=== PATIENT | female | born 2005 | race Caucasian/White ===

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

== ENCOUNTER 2024-01-22 16:13 | Emergency (ER) | payer MEDICAID, SELFPAY ==
[2024-01-22 17:07] VITALS: BP 94/61; PULSE 94; RESP 17; TEMP 36.3; O2SAT 99; BMI 21.3
--- NOTE | 2024-01-22 17:08 | ED.GENADULT ---
HPI - General Adult General Chief complaint: Urogenital-Female Stated complaint: ?UTI/back pain Time Seen by Provider: 01/22/24 21:55 Source: patient and family Mode of arrival: ambulatory Limitations: no limitations History of Present Illness ED Provider: DR. Jackson HPI narrative: 18-year-old female came in for evaluation of upper back pain for months now pain is intermittent worsening with movement or heavy lifting, patient declined any trauma to the upper back, no neck pain. No upper extremity swelling or tenderness. Complaining of dysuria, patient is having her period. Related Data Previous Rx's ?Medication ?Instructions ?Recorded cyclobenzaprine 10 mg tablet 10 mg PO TID PRN muscle spasm #15 09/27/21 tabs ibuprofen 600 mg tablet 600 mg PO Q6H PRN pain #30 tabs 09/27/21 ketorolac 10 mg tablet 10 mg PO TID PRN pain #10 tabs 11/09/21 metoclopramide HCl 5 mg tablet 5 mg PO DAILY #10 tabs 11/09/21 (Reglan) sumatriptan succinate 50 mg tablet 50 mg PO Q2-4H PRN migraine 11/09/21 headache #10 tabs Allergies Allergy/AdvReac Type Severity Reaction Status Date / Time amoxicillin [AMOXICILLIN] Allergy Intermediate UNKNOWN Verified 01/22/24 17:09 animal dander [PET DANDER] Allergy Intermediate HIVES Verified 01/22/24 17:09 Review of Systems Review of Systems: All other systems are reviewed and are negative Constitutional: Reports as per HPI and Reports no additional constitutional complaints Eyes: Reports as per HPI and Reports no additional eye complaints Reports system reviewed and no additional complaints, except as documented Cardiovascular: Reports as per HPI and Reports no additional cardiovascular complaints Respiratory: Reports as per HPI and Reports no additional respiratory complaints Gastrointestinal: Reports as per HPI and Reports no additional gastrointestinal complaints Genitourinary: Reports no additional female genitourinary complaints Musculoskeletal: Reports no additional musculoskeletal complaints Skin/Breast: Reports system reviewed and no additional complaints, except as docu Psychiatric: Reports no additional psychiatric complaints Endocrine: Reports no additional endocrine complaints Hematologic/Lymphatic: Reports no additional hematologic/lymphatic complaints Allergic/Immunologic: Reports no additional allergic/immunologic complaints Reports system reviewed and no additional complaints, except as documented and Reports Abnormal speech present PMFSH Past Medical History Medical History Migraines Social History Social History Advance Directives: No Advance Directives Information Provided: No Do you have a plan to hurt others: No Plan Physical Exam ED Vital Signs: Vital Signs - 24 hr 01/22/24 17:07 01/22/24 20:13 Temperature 97.3 F 98.4 F Pulse Rate 94 80 Respiratory Rate 17 17 Blood Pressure 94/61 115/66 Pulse Oximetry 99 98 Oxygen Delivery Method Room Air Room Air BMI result Body Mass Index 21.3 Vital signs have been reviewed and appear to be correct. Blood pressure elevated. Heart rate normal. Respiratory rate normal. Temperature normal. Oxygen saturation normal. Appearance: Alert. Oriented X3. No acute distress. Head: Normal external exam. Normocephalic. Atraumatic. No Torres signs noted. No raccoon eyes noted Eyes: PERRLA. EOMI. Conjunctiva and sclera normal. Eyelids normal. ENT: TM's Normal. Pharynx normal. Uvula midline. Moist mucous membranes. No trismus noted. No drooling noted. No muffled voice noted. Neck: Normal inspection. Neck supple. FROM. No adenopathy. Thyroid Normal. No meningeal signs. No neck mass noted. CVS: Normal heart rate and rhythm. Heart sound normal. No murmurs noted. Pulses normal throughout. Respiratory: No respiratory distress. Painless inspiration. Breath sounds normal. No wheezes/rales/rhonchi noted. Chest nontender. No accessory muscle usage noted or decreased air movement noted. Abdomen: Soft and nontender. Bowel sounds normal in all 4 quadrants. No distention noted. No organomegaly noted. No visible injury noted. Back: No CVA tenderness. Full range of motion noted. Skin: Skin warm and dry. Normal skin color. Normal skin turgor. No rashes/lesions/lacerations noted. Extremities: No lower extremity edema. Extremities exhibit normal range of motion. Extremities nontender. Neuro: Oriented X 3. Cranial nerve exam: II-XII are grossly intact No motor deficit. No sensory deficit. Reflexes normal. Course Course Course Narrative: This is an RME done by ANDREINA Marcos: Additional HPI, ROS, PE not included below will be deferred to primary provider. 18 yo female presenting with back pain, dysuria, and vaginal discharge. She reports she has had similar symptoms in the past when she had a UTI. She does not report any concerns for STIs. Appearance: Alert.? Oriented X3.? No acute cardiopulmonary distress distress.? Head: Normocephalic, atraumatic, no step-offs or deformities Neck: Normal inspection.? Neck supple.? CVS: Pulses normal.? Respiratory: No respiratory distress.? Skin: ? Normal skin color. Extremities: 5/5 strength to bilateral upper and lower extremities Back: No midline tenderness, no C-spine tenderness, full range of motion, No CVA tenderness bilaterally Neuro: Oriented X 3.? No motor deficit.? No sensory deficit. Reevaluation(s) Reevaluation #1: Upper back pain on and off, no trauma, no injury, patient is requesting x-ray, normal neuro exam. Left before x-ray and full evaluation. Time: 22:30 Medical Decision Making Differential Diagnosis Differential Diagnoses: The differential diagnosis associated with the presentation includes (Muscular pain, osteoarthritis, UTI, .) Admission/Observation Consideration of admission/observation: Escalation of care including admission/observation considered Lab Data MDM Lab Attestation statement: I reviewed the patient's lab results. 01/22/24 17:20 01/22/24 17:20 Labs: Lab Results 01/22/24 Range/Units 17:20 WBC 6.1 (4.8-10.8) X10*3/uL RBC 4.25 (4.20-5.50) X10*6/uL Hgb 13.0 (12.0-16.0) g/dl Hct 38.3 (37.0-47.0) % MCV 90.1 (80.0-98.0) fL MCH 30.6 (27.0-33.0) pg MCHC 33.9 (31.0-35.0) g/dl RDW 12.7 (11.0-16.0) % Plt Count 258 (160-400) X10*3/uL MPV 11.2 (9.4-12.3) fL Immature Gran % (Auto) 0.3 (0.0-0.4) % Neut % (Auto) 66.7 (45-73) % Lymph % (Auto) 22.8 (20-40) % [place] % (Auto) 7.4 (2-11) % Eos % (Auto) 2.1 (0-4) % Baso % (Auto) 0.7 (0-2) % Lymph # (Auto) 1.4 (1.2-4.9) X10*3/uL [place] # (Auto) 0.5 (0.1-1.2) X10*3/uL Eos # (Auto) 0.1 (0.0-0.4) X10*3/uL Baso # (Auto) 0.0 (0.0-0.2) X10*3/uL Abs Immat Gran (auto) 0.02 (0.00-0.03) X10*3/uL Absolute Neuts (auto) 4.1 (2.0-8.3) x10*3/uL Absolute Nucleated RBC 0.000 (0.0-0.012) X10*3/uL Nucleated RBC % (auto) 0.0 (0.0-0.2) /100WBC Sodium 142 (135-145) mmol/L Potassium 4.1 (3.3-5.1) mmol/L Chloride 111 H (96-108) mmol/L Carbon Dioxide 24 (22-29) mmol/L Anion Gap 11 L (12-20) BUN 13 (9-16) mg/dL Creatinine 0.76 (0.5-1.4) mg/dL Estim Creat Clear Calc 89.8 Estimated GFR > 60 Random Glucose 86 (60-115) mg/dL Calcium 9.2 (8.4-10.2) mg/dL Magnesium 2.1 (1.6-2.6) mg/dL Total Bilirubin 0.6 (0.0-1.0) mg/dL AST 22 (5-31) U/L ALT 15 (0-31) U/L Alkaline Phosphatase 94 (39-117) U/L Total Protein 7.1 (6.5-8.0) g/dL Albumin 4.1 (3.5-5.0) g/dL Beta HCG, Quant < 2 mIU/mL Urine Color Dark Yellow Urine Appearance Cloudy Urine pH 5.5 (5.0-9.0) Ur Specific [place] >= 1.030 H (1.005-1.025) Urine Protein Trace (Neg-Trace) mg/dL Urine Glucose (UA) Negative (Negative) mg/dL Urine Ketones Trace (Negative) mg/dL Urine Blood Small (1+) H (Negative) Urine Nitrite Negative (Negative) Ur Leukocyte Esterase Negative (Negative) Urine RBC 6-10 H (0-2) /HPF Urine WBC 0-5 (0-5) /HPF Ur Squamous Epith Cells 11-20 (0-2) /HPF Urine Bacteria Trace (None Seen) Hyaline Casts 3-5 (0-2) /LPF Urine Test NEGATIVE (NEGATIVE) Discharge Plan Discharge Clinical Impression: Pain in thoracic spine Patient Disposition: Home, Self-Care Instructions: Thoracic Pain (ED) Additional Instructions: Take [id number] ibuprofen 200 mg tablet or Tylenol 500 mg tablet every 6 hours if needed for pain. Prescriptions: No Action ibuprofen 600 mg tablet 600 mg PO Q6H PRN (Reason: pain) Qty: 30 0RF cyclobenzaprine 10 mg tablet 10 mg PO TID PRN (Reason: muscle spasm) Qty: 15 0RF ketorolac 10 mg tablet 10 mg PO TID PRN (Reason: pain) Qty: 10 0RF Rx Instructions: Do not take ibuprofen with this medication, only Tylenol if needed. metoclopramide HCl [Reglan] 5 mg tablet 5 mg PO DAILY Qty: 10 0RF Rx Instructions: Take together with Toradol p.r.n. migraines sumatriptan succinate 50 mg tablet 50 mg PO Q2-4H PRN (Reason: migraine headache) Qty: 10 0RF Rx Instructions: Use only if Toradol does not work Print Language: Welsh
[2024-01-22 17:29] LABS: MANUAL DIFF FLAG NO
[2024-01-22 17:33] LABS: Appearance Urine Cloudy; Color Urine Dark Yellow; Glucose Urine UA Negative (Negative); Leukocyte Esterase Urine Negative (Negative); Nitrite Urine Negative (Negative); PH 5.5 (5.0-9.0); Specific Gravity - Urine >= 1.030 (1.005-1.025); UMIC TRIGGER UACC YES; UPreg QC Valid YES; Urine Blood Small (1+) (Negative); Urine Ketones Trace mg/dL (Negative); Urine Pregnancy NEGATIVE (NEGATIVE); Urine Protein Trace mg/dL (Neg-Trace)
[2024-01-22 17:35] LABS: Basophils Percent Auto 0.7 % (0-2); Eosinophils Absolute Auto 0.1 X10*3/uL (0.0-0.4); Eosinophils Percent Auto 2.1 % (0-4); Hematocrit 38.3 % (37.0-47.0); Imm Gran Abs Auto 0.02 X10*3/uL (0.00-0.03); Imm Gran Pct Auto 0.3 % (0.0-0.4); Lymphocytes Absolute Auto 1.4 X10*3/uL (1.2-4.9); Lymphocytes Percent Auto 22.8 % (20-40); Mean Corpuscular HGB Conc 33.9 g/dl (31.0-35.0); Mean Corpuscular Hemoglobin 30.6 pg (27.0-33.0); Mean Corpuscular Volume 90.1 fL (80.0-98.0); Mean Platelet Volume 11.2 fL (9.4-12.3); Monocytes Absolute Auto 0.5 X10*3/uL (0.1-1.2); Monocytes Percent Auto 7.4 % (2-11); Neutrophils Absolute Auto 4.1 x10*3/uL (2.0-8.3); Neutrophils Percent Auto 66.7 % (45-73); Platelet Count 258 X10*3/uL (160-400); Red Blood Count 4.25 X10*6/uL (4.20-5.50); Red Cell Distribution Width 12.7 % (11.0-16.0); White Blood Count 6.1 X10*3/uL (4.8-10.8)
[2024-01-22 17:47] LABS: Bacteria Urine Trace (None Seen); WBC Urine 0-5 /HPF (0-5)
[2024-01-22 18:04] LABS: Alanine Aminotransferase 15 U/L (0-31); Albumin Level 4.1 g/dL (3.5-5.0); Alkaline Phosphatase 94 U/L (39-117); Anion Gap 11 (12-20); Aspartate Amino Transferase 22 U/L (5-31); Bilirubin Total 0.6 mg/dL (0.0-1.0); Blood Urea Nitrogen 13 mg/dL (9-16); Calcium 9.2 mg/dL (8.4-10.2); Carbon Dioxide 24 mmol/L (22-29); Chloride 111 mmol/L (96-108); Creatinine Clr Calc Pharmacy 89.8; Estimated Glomerular Filt Rate > 60; Glucose Random 86 mg/dL (60-115); HCG Quantitative < 2 mIU/mL; Magnesium 2.1 mg/dL (1.6-2.6); Potassium 4.1 mmol/L (3.3-5.1); Sodium 142 mmol/L (135-145); Total Protein 7.1 g/dL (6.5-8.0)
[2024-01-22 20:13] VITALS: BP 115/66; PULSE 80; RESP 17; TEMP 36.9; O2SAT 98
--- NOTE | 2024-01-22 22:37 | MHC.EDTECH ---
Pt and pt mother approached this tech and stated we want to leave. This tech attempted to explain it is best to wait until they are formally discharged as there was still exams that needed to be done as well as results that were not yet back. Pt mother stated we have been here for five hours and no one has seen my daughter we want to leave or go get the doctor. Tech apologized and stated that the doctor would be over as soon as they could be. Pt mother continued to grow more agitated and tech stated she would get the nurse for her. Tech told the RN and RN attempted to talk to the pt and pt mother.
--- NOTE | 2024-01-22 23:37 | PC.NURSE ---
pt requested to leave prior to xray imaging, stated that she met with the doctor but did not want to stay any longer. she was awake, alert, without distress and ambulated out of the ed with even and steady gait
== END 2024-01-22 22:15 | disposition left against medical advice (07) ==
PROVIDERS: Physician Assistant; Emergency Provider Emergency Medicine
DX: M54.6 Pain in thoracic spine (principal)
CPT/HCPCS: 36415; 80053; 81001; 81025; 83735; 84702; 85025; 99283

== ENCOUNTER 2024-02-08 18:07 | Outpatient (REF) | payer MEDICAID, SELFPAY ==
[2024-02-09 02:09] LABS: CT PCR DETECTED (Not Detect.); NG PCR NOT DETECTED (Not Detect.)
== END 2024-02-08 18:08 | disposition home or self-care (01) ==
LOC: HO.HHCLNP 18:07
PROVIDERS: Visit Provider Advanced Practice Midwife
DX: Z20.2 Contact with and (suspected) exposure to infections with a predominantly sexual mode of transmission (principal); N76.0 Acute vaginitis
CPT/HCPCS: 87491; 87591

== ENCOUNTER 2024-03-17 19:05 | Outpatient (REF) | payer MEDICAID, SELFPAY ==
[2024-03-18 12:30] LABS: CT PCR NOT DETECTED (Not Detect.); NG PCR NOT DETECTED (Not Detect.)
[2024-03-18 13:42] LABS: Bacterial Vaginosis PCR POSITIVE (Negative); Candida Group PCR NOT DETECTED (Not Detect); Candida glab krusei PCR NOT DETECTED (Not Detect); Trichomonas vaginalis PCR NOT DETECTED (Not Detect)
== END 2024-03-17 19:06 | disposition home or self-care (01) ==
LOC: HO.HHCLNP 19:05
PROVIDERS: Visit Provider Internal Medicine
DX: R39.9 Unspecified symptoms and signs involving the genitourinary system (principal)
CPT/HCPCS: 0352U; 87491; 87591

== ENCOUNTER 2024-04-04 17:50 | Outpatient (REF) | payer MEDICAID, SELFPAY ==
[2024-04-05 04:48] LABS: CT PCR NOT DETECTED (Not Detect.); NG PCR NOT DETECTED (Not Detect.)
[2024-04-05 10:58] LABS: Bacterial Vaginosis PCR NEGATIVE (Negative); Candida Group PCR NOT DETECTED (Not Detect); Candida glab krusei PCR NOT DETECTED (Not Detect); Trichomonas vaginalis PCR NOT DETECTED (Not Detect)
== END 2024-04-04 17:51 | disposition home or self-care (01) ==
LOC: HO.HHCLNP 17:50
PROVIDERS: Visit Provider Internal Medicine
DX: N89.8 Other specified noninflammatory disorders of vagina (principal)
CPT/HCPCS: 0352U; 87491; 87591

== ENCOUNTER 2024-06-14 14:26 | Outpatient (REF) | payer MEDICAID, SELFPAY ==
[2024-06-15 05:37] LABS: CT PCR NOT DETECTED (Not Detect.); NG PCR NOT DETECTED (Not Detect.)
[2024-06-15 08:08] LABS: Bacterial Vaginosis PCR NEGATIVE (Negative); Candida Group PCR NOT DETECTED (Not Detect); Candida glab krusei PCR NOT DETECTED (Not Detect); Trichomonas vaginalis PCR NOT DETECTED (Not Detect)
== END 2024-06-14 14:27 | disposition home or self-care (01) ==
LOC: HO.LNP 14:26
PROVIDERS: Visit Provider Pediatrics
DX: R30.0 Dysuria (principal)
CPT/HCPCS: 0352U; 87491; 87591

== ENCOUNTER 2024-07-22 09:45 | Outpatient (REF) | payer MEDICAID, SELFPAY ==
[2024-07-22 11:07] LABS: MANUAL DIFF FLAG NO
[2024-07-22 11:15] LABS: Basophils Absolute Auto 0.1 X10*3/uL (0.0-0.2); Basophils Percent Auto 1.4 % (0-2); Eosinophils Absolute Auto 0.2 X10*3/uL (0.0-0.4); Eosinophils Percent Auto 3.4 % (0-4); Hematocrit 44.5 % (37.0-47.0); Hemoglobin 14.7 g/dl (12.0-16.0); Imm Gran Abs Auto 0.02 X10*3/uL (0.00-0.03); Imm Gran Pct Auto 0.5 % (0.0-0.4); Lymphocytes Absolute Auto 1.7 X10*3/uL (1.2-4.9); Lymphocytes Percent Auto 37.8 % (20-40); Mean Corpuscular Hemoglobin 29.8 pg (27.0-33.0); Mean Corpuscular Volume 90.1 fL (80.0-98.0); Mean Platelet Volume 11.8 fL (9.4-12.3); Monocytes Absolute Auto 0.3 X10*3/uL (0.1-1.2); Monocytes Percent Auto 6.6 % (2-11); Neutrophils Absolute Auto 2.2 x10*3/uL (2.0-8.3); Neutrophils Percent Auto 50.3 % (45-73); Platelet Count 238 X10*3/uL (160-400); Red Blood Count 4.94 X10*6/uL (4.20-5.50); Red Cell Distribution Width 12.1 % (11.0-16.0); White Blood Count 4.4 X10*3/uL (4.8-10.8)
[2024-07-22 12:11] LABS: Alanine Aminotransferase 16 U/L (0-31); Albumin Level 4.9 g/dL (3.5-5.0); Alkaline Phosphatase 100 U/L (39-117); Anion Gap 9 (12-20); Aspartate Amino Transferase 22 U/L (5-31); Bilirubin Direct 0.4 mg/dL (0.0-0.5); Bilirubin Total 1.3 mg/dL (0.0-1.0); Blood Urea Nitrogen 10 mg/dL (9-16); Calcium 9.8 mg/dL (8.4-10.2); Carbon Dioxide 27 mmol/L (22-29); Chloride 109 mmol/L (96-108); Cholesterol 124 mg/dL (<200); Estimated Glomerular Filt Rate > 60; Glucose Random 91 mg/dL (60-115); HDL Cholesterol 61 mg/dL (>40); LDL Cholesterol Calculated 53 mg/dL (<100); Sodium 141 mmol/L (135-145); Total Protein 8.1 g/dL (6.5-8.0); Triglycerides 51 mg/dL (<150)
[2024-07-22 13:38] LABS: CT PCR NOT DETECTED (Not Detect.); NG PCR NOT DETECTED (Not Detect.)
[2024-07-23 04:32] LABS: HIV AB/AG Nonreactive (Nonreactive); HIV Num 1 0.05 S/CO (0.00-0.99); ~HepC Num1 0.14 S/CO (0.00-0.79); ~Hepatitis C Antibody Nonreactive (Nonreactive)
== END 2024-07-22 09:46 | disposition home or self-care (01) ==
LOC: HO.HHCL 09:45
PROVIDERS: Visit Provider Family Medicine
DX: N91.2 Amenorrhea, unspecified (principal); Z11.3 Encounter for screening for infections with a predominantly sexual mode of transmission
CPT/HCPCS: 80048; 80061; 80076; 85025; 86803; 87389; 87491; 87591

== ENCOUNTER 2025-04-18 10:24 | Outpatient (REF) | payer MEDICAID, SELFPAY ==
--- OUTSIDE RECORDS SUMMARY | 2025-04-18 11:34 | XMS_ITS | Clinical Summary ---
Author Organization [employer] Address [address] [facility] 7[address] [place] [address] Care Team Providers Care Alodize Machine Helper Name Role Phone Yanely Mcdonald MD Primary Care Provider [phone] Charlene Curiel MD Unavailable + [phone] Allergies Active Allergy Reactions Criticality Noted Date Comments Amoxicillin Hives 03/10/2014 Medications etonogestrel-eluti ng 68 mg contraceptive implantIndications :Family planning 1 each by Implant route 1 (one) time. 1 Active cetirizine (ZyrTEC) 10 MG tabletIndications: Acute seasonal allergic rhinitis due to pollen Take 1 tablet (10 mg) by mouth Once per day. 30 tablet 11 5 07/22/19 26 Active Active Problems Problem Noted Date Diagnosed Date Chronic midline thoracic back pain 07/22/2024 Overview (07/22/2024): Other specified health status 07/09/2024 Overview (07/22/2024): -next comprehensive annual evaluation due after 07/22/25 -eye care facilitated by -dental home is [facility] care proxy filed 07/22/24 Assessment & Plan (07/22/2024 9:43 AM EST): -next comprehensive annual evaluation due after 07/22/25 -[facility] proxy filed 07/22/24 Migraine without aura and wi thout status migrainosus, not intractable 05/14/2022 Overview (07/22/2024): -Followed by Neurology, Dr. Cruiel in past. Dxs: Migraines. Has been tried on Propranolol, Topiramate, Amitriptyline without success. Had Sumatriptan as an abortive but now just deals with it. Does not want to take medications for them. Occ Tylenol or Ibuprofen. Assessment & Plan (07/22/2024 9:45 AM EST): -Followed by Neurology, Dr. Curiel in past. Dxs: Migraines. Has been tried on Propranolol, Topiramate, Amitriptyline without success. Had Sumatriptan as an abortive but now just deals with it. Does not want to take medications for them. Occ Tylenol or Ibuprofen. Nexplanon in place 12/21/2020 Overview (07/22/2024): - Placed 12/21/20 at [facility], she would like it removed. -has apt at [facility] for removal 07/27/24 -declines new family planning method. Declines Plan B. Does not desire at this time. Denies sexual activity. Assessment & Plan (07/22/2024 9:45 AM EST): - Placed 12/21/20 at [facility], she would like it removed. -has apt at [facility] for removal 07/27/24 -declines new family planning method. Declines Plan B. Does not desire at this time. Denies sexual activity. Acute seasonal allergic rhinitis due to pollen 0 01/03/2019 Overview (07/22/2024): -Seen by Dr. Davis. Started immunotherapy but stopped after 6 months. Takes Zyrtec prn. Assessment & Plan (07/22/2024 9:45 AM EST): -Seen by Dr. Davis. Started immunotherapy but stopped after 6 months. Takes Zyrtec prn. Resolved Problems Problem Noted Date Diagnosed Date Resolved Date Normal oral exam 06/20/2024 07/09/2024 Bacterial vaginosis 04/04/2024 07/09/20 24 Assessment & Plan (04/04/2024 1:36 PM EDT): Last vaginal swab was POS for BV, I will rx with Flagyl and fu today's swab results. Advised against vag douches, avoid intercourse while on medication. Re consult prn sxs FU with PCP re vag spotting if peristent 2w after rx. Dental plaque 03/16/2023 07/09/2024 Lab test positive for detect ion of COVID-19 virus 07/09/2020 07/09/2024 Overview (02/08/2024): June 2020 Allergic conjunctivitis of both eyes 01/03/2019 07/09/2024 Overview (02/08/2024): Zaditor as needed Encounters Date Type Department Care Team Description 04/17/[address] [address] Yanely Mcdonald MD Pt resquting physical and tspot 04/17/2025 Orders Only [address] [phone] Yanely Mcdonald MD Screening-pulmonary TB (Primary Dx) 04/17/[address] [address] Yanely Mcdonald MD Paperwork/Forms; Lab Orders from Last 3 Months Immunizations Immunization Administration Dates Next Due DTaP / Hep B / IPV 01/01/2005,2004, 005 DTaP, 5 pertussis antigens 08/21/2008,12/30/2005 HPV 9-Valent 12/23/2017,07/18/2016 Hep A, ped/adol, 2 dose 04/19/2014,10/17/2013 Hib (HbOC) 01/01/2005,2004,2004 Hib (PRP-T) 09/26/2005 IPV 08/21/2008 Influenza Injectable Quadriv alant Preservative Free IIV4 MDCK 06/24/2016 Influenza injectable quadriv alent preservative free 09/22/2022,05/07/2021,06/20/2020,05/25,07/06/2017,04/15/2014,10/17/2013 Influenza, IIV3, injectable 07/18/2009,1 08/22/2007,07/27/2007,05/29,07/04/2005,05/30/2005 Influenza, Split (incl. cari fied surface antigen) 10/03/2011,06/19/2010 MMR 08/21/2008,07/04/2005 Meningococcal B, Recombinant 09/28/2023,09/23/19 23 Meningococcal MCV4P ACYW-135 08/22/2020,12/07/19 16 Novel Toirsypef-U8H2-20, all formulations 07/18/2009,05/29/2009 Pneumococcal Conjugate PCV 7 09/26/2005, 01/01/2005,2004,09/03 Tdap 12/07/2015 Varicella 08/21/2008,07/04/2005 Family History Medical History Relation Name Comments Diabetes Neg Hx Social History Tobacco Use Types Packs/Day Years Used Date Smoking Tobacco: Never Passive Smoke Exposure: Past Smokeless Tobacco: Former Tobacco Cessation:Counseling Given: Not Answered Alcohol Use Standard Drinks/Week Comments Never 0 (1 standard drink = 0.6 oz pur e alcohol) Depression Answer Date Recorded Patient Health Questionnaire-9 Score 0 07/22/2024 Patient Health Questionnaire-9 Score 0 07/22/2024 Last PHQ-9: Questionnaire Data Not on file 0 07/22/2024 Housing Stability Answer Date Recorded What is your housing situation today? I have jason barrett 07/12/[address] you li ve. Do you have problems with any of the following? None of the above 07/12/2024 Food Insecurity Answer Date Recorded Within the past 12 months, y ou worried that your food would run out before you got money to buy more: Never True 07/12/2024 Within the past 12 months,th e food you bought just didn't last and you didn't have enough money to get more: Never True Transportation Answer Date Recorded In the past 12 months, has l ack of transportation kept you from medical appts, meetings, work or from getting things needed for daily living? No 07/12/2024 Utilities Answer Date Recorded In the past 12 months, has t he electric, gas, oil or water company threatened to shut off services in your home? No 07/12/2024 Depression Answer Date Recorded Patient Health Questionnaire-2 Score 0 07/22/2024 Internet Access Answer Date Recorded Internet Access Q1 Yes 07/12/2024 Internet Access Q2 Not on file 07/12/2024 Comments No Sex and Gender Information Value Date Recorded Sex Assigned at Female 05/19/2022 10:24 AM EDT Legal Sex Female 10:24 AM EDT Gender Identity Female 05/19/2022 10:24 AM EDT Sexual Orientation Straight 05/19/2022 10 :24 AM EDT Occupation Industry Job Start Date Job End Date [employer] Not on file Not on file Not on file Last Filed Vital Signs Vital Sign Reading Time Taken Comments Blood Pressure 94/68 12/20/2024 7:59 AM EDT Pulse 74 07/22/2024 9:14 AM EST Temperature 36.1 C (96.9 F) 07/22/2024 9:14 AM EST Respiratory Rate 19 07/22/2024 9:14 AM EST Oxygen Saturation 98% 07/22/2024 9:14 AM EST Inhaled Oxygen Concentration - - Weight 49.9 kg (110 lb) 07/22/2024 9:14 AM EST Height 157.5 cm (5' 2 ) 07/22/2024 9:14 AM EST Body Mass Index 20.12 07/22/2024 9:14 AM EST Plan of Treatment Upcoming Encounters Date Type Department Care Team (Late st Contact Info) Description 07/04/2025 8:00 AM EST Office Visit [facility] [address] [place] [address] Vincent, Grecia [address] [place] [address] Health Maintenance Due Date Last Done Comments Disability Screening 2004 Dental Oral Exam 12/20/2024 06/20/2024, , 01/16/2022, Additional history exists COVID-19 Vaccine ( season) 2025 12/06/2020, 11/15/2020 Influenza Vaccine (#1) 2025 , 05/07/2021, 06/20/2020, Additional history exists Dental X-Ray: Bitewings 06/21/2025 06/20/20 24, 03/16/2023, 01/16/2022, Additional history exists Dental Prophylaxis 06/22/2025 12/20/2024, 1 08/21/2023, 03/16/2023, Additional history exists SDOH Screening 07/12/2025 07/12/2024 Alcohol/Substance Use Screening 07/22/2025 07/22/2024 Chlamydia and Gonorrhea Screening 07/22/2025 07/22/2024, 06/14/2024, 04/04/2024, Additional history exists Depression Screening 07/22/2025 07/22/2024, 07/22/19 25 Family Planning (PISQ) 07/22/2025 07/22/2024 DTaP/Tdap/Td Vaccines (7 - Td or Tdap) 12/06/2025 12/07/2015, 08/21/2008, 12/30/2005, Additional history exists Tobacco Screening 12/20/2025 12/20/2024 Dental X-Ray: Full Mouth 03/17/2026 023, 08/18/2017, 10/22/2015 Zoster Vaccines (1 of 2) 2054 RSV Patients and Patients Aged 60 years or older (1 - 1-dose 75+ series) 2079 Hepatitis B Vaccines Completed 01/01/2005, 2004, 2004 HIB Vaccines Completed 09/26/2005, 12/18, 2004, Additional history exists Pneumococcal Vaccine: Pediatrics (0 to 5 Years) and At-Risk Patients (6 to 49) Years Aged Out 09/26/2005, 01/01/2005, 2004, Additional history exists No longer eligible based on patient's age to complete this topic IPV Vaccines Completed 08/21/2008, 12/18, 2004, Additional history exists Hepatitis A Vaccines Completed 04/19/2014, 10/18/19 14 HPV Vaccines Completed 12/23/2017, 07/18/2016 Meningococcal Vaccine Completed 08/22/2020, 016 Meningococcal B Vaccine Completed 09/28/2023, 09/22 HIV Screening Completed 07/22/2024 Hepatitis C Screening Completed 07/22/2024 RSV under 20 months Aged Out No longe r eligible based on patient's age to complete this topic Rotavirus Vaccines Aged Out No longer eligible based on patient's age to complete this topic Procedures Procedure Name Priority Date/Time Associated Diagnosis Comments PROPHYLAXIS - ADULT Routine 12/20/2024 8 :00 AM EDT Dental plaque HEPATITIS C AB W/REFL TO HCV RNA, QN, PCR Routine 07/22/2024 9:49 AM EST Routine screening for STI (sexually transmitted infection) HIV 1/2 ANTIGEN/ANTIBODY, FOURTH GENERATION W/RFL Routine 07/22/2024 9:49 AM EST Routine screening for STI (sexually transmitted infection) CHLAMYDIA/N. GONORRHOEAE RNA, TMA, UROGENITAL Routine 07/22/2024 9:49 AM EST Routine screening for STI (sexually transmitted infection) BITEWINGS - 4 RADIOGRAPHIC IMAGES Routine 06/20/2024 9:00 AM EST Dental plaque PERIODIC ORAL EVALUATION - ESTABLISHED PATIENT Routine 06/20/2024 9:00 AM EST INTRAORAL - COMPLETE SERIES OF RADIOGRAPHIC IMAGES Routine 03/16/2023 11:00 AM EDT Dental plaque from Last 3 Months or Most Recently Relevant to Health Maintenance Results * Hepatitis C Antibody with Reflex to HCV, RNA, Quantitative, Real-Time PCR (07/22/2024 9:49 AM EST) Hepatitis C Antibody Nonreactive Nonreactive [facility] Comment:Antibodies to HCV no t detected; does not exclude early acuteHCV infection. Blood Venous blood specimen / Unknown 07/22/2024 9:49 AM EST 07/22/2024 11:03 AM EST Yanely Mcdonald MD LAB BLOOD ORDERABLES Final Result [facility] [address] [place] [address] [phone] * Chlamydia/N. Gonorrhoeae RNA, TMA, Urine (07/22/2024 9:49 AM EST) CT PCR NOT DETECTED Not Detect. [facility] Comment:A not detected test result does not exclude the possibilityof infection because test results can be affected byimproper specimen collection, concurrent antibiotic therapy,or the number of organisms in the specimen which may bebelow the sensitivity of the test. As with many diagnostictests, results from the Xpert CT/NG assay should beinterpreted in conjunction with other laboratory andclinical data available to the clinician.Xpert CT/NG performance has not been evaluated in patientsless than 14 years of age. The assay should not be used forthe evaluationof suspected sexual abuse or for other medico-legalindications. Additional testing is recommended in anycircumstance when false positive or false negative resultscould lead to adverse medical, social or psychologicalconsequences. NG PCR NOT DETECTED Not Detect. [facility] Comment:A not detected test result does not exclude the possibilityof infection because test results can be affected byimproper specimen collection, concurrent antibiotic therapy,or the number of organisms in the specimen which may bebelow the sensitivity of the test. As with many diagnostictests, results from the Xpert CT/NG assay should beinterpreted in conjunction with other laboratory andclinical data available to the clinician.Xpert CT/NG performance has not been evaluated in patientsless than 14 years of age. The assay should not be used forthe evaluationof suspected sexual abuse or for other medico-legalindications. Additional testing is recommended in anycircumstance when false positive or false negative resultscould lead to adverse medical, social or psychologicalconsequences. Urine, Random 07/22/2024 9:4 9 AM EST 07/22/2024 11:03 AM EST Narrative [facility] - 07/22/2024 1:38 PM EST Urine Yanely Mcdonald MD LAB MICROBIOLOGY - GENERAL ORDERABLES Final Result Performing Organization Address [facility] Co de Phone Number [facility] [address] [place] [phone] * HIV-1/2 Antigen and Antibodies, Fourth Generation, with Reflexes (07/22/2024 9:49 AM EST) HIV AB/AG Nonreactive Nonreactive [facility] Comment:HIV-1 p24 Ag and/or HIV-1/HIV-2 Ab not detected.A test result that is nonreactive does not exclude thepossibility of exposure to or infection with HIV-1 and/orHIV-2. Nonreactive results in this assay for individualswith prior exposure to HIV-1 and/or HIV-2 may be due toantigen and antibody levels that are below the limit ofdetection of this assay.The [employer] HIV Ag/Ab Combo assay result andsupplemental assay results should be interpreted inconjunction with the patient's clinical presentation,history and other laboratory results. If the results areinconsistent with clinical evidence, additional testing issuggested to confirm the result. Blood Venous blood specimen / Unknown 07/22/2024 9:49 AM EST 07/22/2024 11:03 AM EST Yanely Mcdonald MD LAB BLOOD ORDERABLES Final Result Performing Organization Address [facility] Co de Phone Number [facility] [address] [place] [phone] from Last 3 Months or Most Recently Relevant to Health Maintenance [facility] C[facility] - HSN PARTIAL (MEDICAID) Advance Directives Documents on File Type Date Recorded Patient Log Cutter Expl anation Advance Directives and Living Will 07/22/2024 Health Care Proxy 07/22/24 Care Teams Alodize Machine Helper Relationship Specialty Start Date End Date Galloway, MD Yanely [address] [place] [phone] PCP - General Family Medicine 06/09/24 Charlene Curiel MD [address] [place] [address] [place] [address] Neurology 07/09/24
--- OUTSIDE RECORDS SUMMARY | 2025-04-18 11:34 | XMS_ITS | Encounter Summary ---
Author Organization [employer] Address [address] [facility] [address] [place] [address] Care Team Providers Care Advanced Practice Professional Name Role Phone Yanely Mcdonald MD Primary Care Provider [phone]- [phone] Charlene Curiel MD Unavailable + [phone] Reason for Visit * Reason Onset Date Comments Paperwork/Forms 04/17/2025 Lab Orders 04/17/2025 Encounter Details Date Type Department Care Team (Late st Contact Info) Description 04/17/2025 Telephone [facility] MEDICINE [address] [place], [place] [phone] Yanely Mcdonald MD [address] [place], [place] [phone] Paperwork/Forms; Lab Orders Social History Tobacco Use Types Packs/Day Years Used Date Smoking Tobacco: Never Passive Smoke Exposure: Past Smokeless Tobacco: Former Alcohol Use Standard Drinks/Week Comments Never 0 [...] file Not on file Not on file documented as of this encounter Miscellaneous Notes * Telephone Encounter - Edie Ramos RN - 04/17/2025 11:51 AM EDT Returned call to pt, no answer, left voicemail to call back [facility]. Refresh Body message sent. * Telephone Encounter - Carmen Porras RN - 04/17/2025 10:26 AM EDT Pt. Got new job and is requesting copy of PE and a current TB test. This was my reply in pt. [place] pt: Good Morning Jennifer, You can go directly to Medical records and sign a paper requesting your last PE. Usually when a jnob requires a TB test it has to be done in the present on a Thursday, Thursday, or Thursday because youwould have to come back 2 days later to have your arm read where the Tuberculin test was planted oryou could ask PCP to order blood work to show that you are Negative for TB. You did have a New pt. A ppointment. Done 07/22/2024 which may be considered a PE. I will send this note to your PCP to see ifthat appointment. Qualifies as a PE but you will need to either have a PPD appointment with team nurse for TB or I can see if your PCP would be willing to order you the TB blood work. I will ask Dr. Mcdonald nurses to get back to you today on this. Sincerely, Carmen ROUSSEAU Please advise and call pt. With best plan of care documented in this encounter Plan of Treatment Upcoming Encounters Date Type Department Care Team (Late st Contact Info) Description 07/04/2025 8:00 AM EST Office Visit [facility] ADULT DENTAL [address] [place] [address] Grecia Kaur [address] [place] [address] documented as of this encounter Visit Diagnoses Not on filedocumented in this encounter Additional Health Concerns Assessment Noted Time PHQ-9 Depression Total Score: 0 07/22/19 25 11:48 AM EST documented as of this encounter Care Teams Advanced Practice Professional Relationship Specialty Start Date End Date Yanely Mcdonald MD [address] [place] [address] PCP - General Family Medicine 06/09/24 Charlene Curiel MD [address] [place] [address] [place] [address] Neurology 07/09/24 documented as of this encounter
--- OUTSIDE RECORDS SUMMARY | 2025-04-18 11:34 | XMS_ITS | Encounter Summary ---
Author Organization [employer] [facility] Address [address] [place] [address] [address] [place] [address] Care Team Providers Care Java Grails Developer Name Role Phone Yanely Mcdonald MD Primary Care Provider +- [phone] Charlene Curiel MD Unavailable + [phone] Reason for Visit * Reason Onset Date Comments new patient visit 06/09/2024 Encounter Details Date Type Department Care Team ([facility] st Contact Info) Description 06/09/2024 Telephone [facility] [address] [place], [place] [phone] Yanely Mcdonald MD [address] [place], [place] [phone] new patient visit Social History Tobacco Use Types Packs/Day Years Used Date Smoking Tobacco: Never Smokeless Tobacco: Never Comments No Sex and Gender Information Value Date Recorded Sex Assigned at Female 05/19/2022 10:24 AM EDT Legal Sex Female 10:24 AM EDT Gender Identity Female 05/19/2022 10:24 AM EDT Sexual Orientation Straight 05/19/2022 10 :24 AM EDT documented as of this encounter Miscellaneous Notes * Telephone Encounter - Saravanan Tapia - 06/09/2024 10:22 AM EST TC placed to patient for scheduling of new patient visit. Agreed to 07/22/[address] Mcdonald NO Medical Conditions Apptmnt reminder and release form sent via mail . documented in this encounter Plan of Treatment Upcoming Encounters Date Type Department Care Team (Late st Contact Info) Description 07/04/2025 8:00 AM EST Office Visit [facility] ADULT DENTAL [address] [place], [place] [phone] Grecia Kaur [address] [place] [address] documented as of this encounter Visit Diagnoses Not on filedocumented in this encounter Care Teams Java Grails Developer Relationship Specialty Start Date End Date Yanely Mcdonald MD [address] [place] [address] PCP - General Family Medicine 06/09/24 Charlene Curiel MD [address] [place] [address] [place] [address] Neurology 07/09/24 documented as of this encounter
--- OUTSIDE RECORDS SUMMARY | 2025-04-18 11:34 | XMS_ITS | Clinical Summary ---
Author Organization [facility] Address [address] [place] [address] Phone Care Team Providers Care Field Examiner Name Role Phone Sierra Meredith MD Primary Care Provider Allergies Active Allergy Reactions Criticality Noted Date Comments Amoxicillin Hives Environmental 10/07/2021 Animals Medications SM EYE ITCH RELIEF 0.025 % ophthalmic solution PLACE 1 DROP IN THE AFFECTED EYE (s) TWICE DAILY 2 8 Active cetirizine (ZyrTEC Allergy) 10 MG tabletIndication s:Acute seasonal allergic rhinitis due to pollen Take 1 tablet (10 mg total) by mouth nightly as needed for allergies. 30 tablet 3 0 Active Etonogestrel (NEXPLANON SC) Inject under the skin. Active ibuprofen 600 MG tablet Take 600 mg by mouth every 6 (six) hours as needed. for pain 2 Active betamethasone dipropionate 0.05 % lotion APPLY AL AREA DEL SCALP CON PICOR TWICE DAILY HASTA POR 2 SEMANAS. 1 WEEK WITHOUT USE. MAY REPEAT AFTER DE LA SEMANA QUE NO LA USO. AVOID FACE. USE EL KETOCONAZOLE SHAMPOO ALTERNANDOLO CON OTRO SHAMPOO. 2 Active triamcinolone 0.1 % ointment APPLY A THIN LAYER TO ITCHY AREA ON NECK TWICE DAILY FOR UP TO 2 WEEKS ON, THEN 1 WEEK OFF. MAY REPEAT AFTER OFF WEEK. NOT FOR FACE, BETWEEN LEGS OR BODY FOLD 3 Active Active Problems Problem Noted Date Diagnosed Date Dental plaque 03/16/2023 Migraine without aura and wi thout status migrainosus, not intractable 05/14/2022 Overview (09/28/2023): Followed by Neurology, Dr. Curiel. Dxs: Migraines. Has been tried on Propranolol, Topiramate, Amitriptyline without success. Had Sumatriptan as an abortive but now just deals with it. Does not want to take medications for them. Occ Tylenol or Ibuprofen. Nexplanon in place 12/21/2020 Overview (12/21/2020): [facility]20 at [facility] Lab test positive for detection of COVID-19 viru s 07/09/2020 Overview (07/09/2020): June 2020 Acute seasonal allergic rhinitis due to pollen 0 01/03/2019 Overview (09/28/2023): Seen by Dr. Davis. Started immunotherapy but stopped after 6 months. Takes Zyrtec prn. Allergic conjunctivitis of both eyes 01/03/2019 Overview (01/03/2019): Zaditor as needed Resolved Problems Problem Noted Date Diagnosed Date Resolved Date Atopic dermatitis 10/01/2009 09/28/2023 Immunizations Immunization Administration Dates Next Due DTaP / Hep B / IPV 01/01/2005,2004, 005 DTaP 5 08/21/2008,12/30/2005 H1N1 07/18/2009,05/29/2009 HPV Vaccine 9 Valent 12/23/2017,07/18/2016 Hep A, ped/adol 04/19/2014,10/17/2013 Hib (HbOC) 01/01/2005,2004,2004 Hib (PRP-T) 09/26/2005 IPV 08/21/2008 Influenza Split 10/03/2011,06/19/2010 Influenza, injectable, MDCK, preservative free, quadrivalent 06/24/2016 Influenza, injectable, quadr ivalent, preservative free 09/22/2022,05/07/2021,06/20/2020,05/25,07/06/2017,04/15/2014,10/17/2013 Influenza, injectable, trivalent 009,06/21/2008,07/27/2007,05/29,07/04/2005,05/30/2005 MMR 08/21/2008,07/04/2005 Meningococcal B Trumenba 09/28/2023,09/22/2022 Meningococcal Conj (Menactra) MCV4P 08/22/2020,0 12/07/2015 Pneumococcal Conjugate 09/26/2005,2004,2004,09/03 Tdap 12/07/2015 Varicella 08/21/2008,07/04/2005 Family History Relation Name Status Comments Father Willie Black Alive Half-Brother Rickey Bullock Alive Mother Cabrera Rollins Alive Social History Tobacco Use Types Packs/Day Years Used Date Smoking Tobacco: Never Smokeless Tobacco: Never Tobacco Cessation:Counseling Given: Yes Alcohol Use Standard Drinks/Week Comments Never 0 (1 standard drink = 0.6 oz pur e alcohol) Hunger/Food Answer Date Recorded In the last 12 months, did y ou or your family ever eat less than you felt you should because there wasn't enough money for food? No 09/28/2023 Stable Housing Answer Date Recorded Are you worried that in the next 2 months you may not have stable housing? No 09/28/2023 Transportation Concerns Answer Date Rec orded In the last 12 months, have you or your family ever had to go without healthcare because you didn't have a way to get there? No 09/28/2023 Hazards in Home Answer Date Recorded Think about the place you li ve. Do you have problems with any of the following? Pests (mice or roaches), mold, no/not working smoke detectors, water leaks, no window guards. No 2023 Financing Utilities Answer Date Recorde d In the last 12 months, has t he electric, gas, oil, or water company threatened to shut off your services in your home? No 09/28/2023 Safety at Home Answer Date Recorded Are you or your family worried about feeling saf e in your home? No 09/28/2023 Outside Support Answer Date Recorded Do you feel that you need mo re support from other people or programs to help you care for yourself or your family? No 09/28/2023 Understanding Health Concerns Answer Da te Recorded Do you need help understandi ng your or your child's healthcare needs (diagnosis, medications, plan, etc.)? No 09/28/2023 Financing Health Concerns Answer Date R ecorded In the last 12 months, was t here a time when your child needed to see a doctor or get medications or supplies but could not because of cost? No 09/28/2023 Missing School or Work Answer Date Anshu rded Did you or your child miss s chool or work because of a health problem that could have been avoided? No 09/28/2023 Comments No Sex and Gender Information Value Date Recorded Sex Assigned at Female 09/28/2023 2:21 PM EDT Legal Sex Female 4:57 PM EDT Gender Identity Female 09/28/2023 2:21 PM EDT Sexual Orientation Straight 09/28/2023 2: 21 PM EDT Last Filed Vital Signs Vital Sign Reading Time Taken Comments Blood Pressure 109/76 09/28/2023 2:00 PM EDT Pulse 89 09/28/2023 2:00 PM EDT Temperature 36.5 C (97.7 F) 09/28/2023 2:00 PM EDT Respiratory Rate - - Oxygen Saturation - - Inhaled Oxygen Concentration - - Weight 51.3 kg (113 lb 3.2 oz) 09/28/2023 2:00 P M EDT Height 156.2 cm (5' 1.5 ) 09/28/2023 2:00 PM EDT Body Mass Index 21.04 09/28/2023 2:00 PM EDT Plan of Treatment Health Maintenance Due Date Last Done Comments Chlamydia and Gonorrhea Screening 07/20/2024 09/28/2023, 09/22/2022, 05/07/2021, Additional history exists Influenza Vaccines (#1) 2025 09/23/19 23, 05/07/2021, 06/20/2020, Additional history exists COVID-19 Vaccine (3 - 2024-2 6 season) 2025 12/06/2020, 11/15/2020 DTaP,Tdap,and Td Vaccines (7 - Td or Tdap) 12/06/2025 12/07/2015, 08/21/2008, 12/30/2005, Additional history exists Hepatitis B Vaccines Completed 01/01/2005, 2004, 2004 HIB Vaccines Completed 09/26/2005, 12/18, 2004, Additional history exists Pneumococcal Vaccine Completed 09/26/2005, 01/01/2005, 2004, Additional history exists IPV Vaccines Completed 08/21/2008, 12/18, 2004, Additional history exists MMR Vaccines Completed 08/21/2008, 07/04/2005 Varicella Vaccines Completed 08/21/2008, 07/04/2005 Hepatitis A Vaccines Completed 04/19/2014, 10/18/19 14 HPV Vaccines Completed 12/23/2017, 07/18/2016 Meningococcal Vaccine Completed 08/22/2020, 016 HIV Screening Completed 09/22/2022 Hepatitis C Screening Completed 09/22/2022 Men B Vaccine Completed 09/28/2023, 09/22/2022 Procedures * Due to [facility] law, this organization might not be sharing sensitive test results. Procedure Name Priority Date/Time Associated Diagnosis Comments CHLAMYDIA AND GONORRHEA, AMPLIFIED Routine 09/28/2023 2:45 PM EDT Screening examination for bacterial and spirochetal disease HEPATITIS C ANTIBODY WITH REFLEX TO HCV, RNA, QUANT, RT PCR Routine 09/22/2022 3:59 PM EST Well adult exam from Last 3 Months or Most Recently Relevant to Health Maintenance Results * Due to [employer] law, this organization might not be sharing sensitive test results. * Chlamydia and Gonorrhoea, Amplified (Urine) (09/28/2023 2:45 PM EDT) C trach CHARI Negative Negative [facility] N gonorrhoeae CHARI Negative Negative [facility] Urine (Urine, Random (not clean void)) 09/28/2023 2:45 PM EDT 09/28/2023 Comment:Urine, Rando Narrative [facility] - 10/01/2023 12:08 PM EDT Performed at: 01 - [facility] [address], [address], [place], [place] [id number] Dry Dip Worker: Oniel Smith MD, Phone: [phone] us Sierra Meredith MD LAB MICROBIOLOGY - GENERAL ORDERABLES Final Result [facility] [address] [place] [address] * Hepatitis C Antibody w/ Reflex (09/22/2022 3:59 PM EST) Hepatitis C Ab Interpretation NEGATIVE (NEG) [facility] Comment: Reference range: Negative This test was performed on the [employer] Operator immunoassay system. Testing performed or reported by [facility], a Service of [facility], [address] [place] [address] Oniel Smith MD, Olive Brine Tester [facility]# [id number] Blood 09/22/2022 3:59 PM EST 09/22/2022 5:14 PM EST Sierra Meredith MD LAB BLOOD ORDERABLES Final Result [facility] from Last 3 Months or Most Recently Relevant to Health Maintenance Insurance [employer] [place] [id number] [facility] NON PCC Care Teams Field Examiner Relationship Specialty Start Date End Date Sierra Meredith MD [address] [place] [address] [place] [address] PCP - General 02/27/17
--- OUTSIDE RECORDS SUMMARY | 2025-04-18 11:34 | XMS_ITS | Encounter Summary ---
Author Organization [employer] Address [address] [facility] [address] [place] [address] Care Team Providers Care Phlebotomy Supervisor Name Role Phone Yanely Mcdonald MD Primary Care Provider +- [phone] Charlene Curiel MD Unavailable + [phone] Reason for Visit * Reason Onset Date Comments Pt resquting physical and tspot 04/17/2025 Encounter Details Date Type Department Care Team (Late st Contact Info) Description 04/17/2025 Telephone [facility] MEDICINE [address] [place], [place] [phone] Yanely Mcdonald MD [address] [place], [place] [phone] Pt resquting physical and tspot Social History Tobacco Use Types Packs/Day Years [...] encounter Miscellaneous Notes * Telephone Encounter - Tiffanie Tineo [place] - 04/17/2025 1:59 PM EDT I spoke with the pt and I let her know that I going to sent the physical form by mail and the PCP order the tspot and [facility] our [facility]. documented in this encounter Plan of Treatment Upcoming Encounters Date Type Department Care Team (Late st Contact Info) Description 07/04/2025 8:00 AM EST Office Visit [facility] ADULT DENTAL [address] [place] [address] Girish Kauraris [address] [place] [address] documented as of this encounter Visit Diagnoses Not on filedocumented in this encounter Additional Health Concerns Assessment Noted Time PHQ-9 Depression Total Score: 0 07/22/19 25 11:48 AM EST documented as of this encounter Care Teams Phlebotomy Supervisor Relationship Specialty Start Date End Date Yanely Mcdonald MD [address] [place], [place] [address]gl[place] [address] PCP - General Family Medicine 06/09/24 Charlene Curiel MD [address] [place] [address] [place] [address] Neurology 07/09/24 documented as of this encounter
--- OUTSIDE RECORDS SUMMARY | 2025-04-18 11:34 | XMS_ITS | Encounter Summary ---
Author Organization [facility] Address [address] [place] [address] Phone Care Team Providers Care Outsole Cutter Machine Name Role Phone Sierra Meredith MD Primary Care Provider Encounter Details Date Type Department Care Team ([facility] st Contact Info) Description 03/05/2017 Conversion Encounter [facility] [address] [place] [address] Social History Tobacco Use Types Packs/Day Years Used Date Smoking Tobacco: Never Assessed Comments Unknown Sex and Gender Information Value Date Recorded Sex Assigned at Female 09/28/2023 2:21 PM EDT Legal Sex Female 4:57 PM EDT Gender Identity Female 09/28/2023 2:21 PM EDT Sexual Orientation Straight 09/28/2023 2: 21 PM EDT documented as of this encounter Plan of Treatment Not on file documented as of this encounter Visit Diagnoses Not on filedocumented in this encounter Care Teams Outsole Cutter Machine Relationship Specialty Start Date End Date Sierra Meredith MD [address] [place] [address] PCP - General 02/27/17 documented as of this encounter
--- OUTSIDE RECORDS SUMMARY | 2025-04-18 11:34 | XMS_ITS | Encounter Summary ---
Author Organization [facility] Address [address] [facility] 7[address] [place] [address] Care Team Providers Care Extrusion Die Template Maker Name Role Phone Yanely Mcdonald MD Primary Care Provider + [phone] Charlene Curiel MD Unavailable + [phone] Encounter Details Date Type Department Care Team (Late Contact Info) Description 03/18/2024 Orders Only [facility] [address] [place] [address] Mary Reese MD [address] [place] [address] Social History Tobacco Use Types Packs/Day Years Used Date Smoking Tobacco: Never Smokeless Tobacco: Never Comments No Sex and Gender Information Value Date Recorded Sex Assigned at Female 05/19/2022 10:24 AM EDT Legal Sex Female 10:24 AM EDT Gender Identity Female 05/19/2022 10:24 AM EDT Sexual Orientation Straight 05/19/2022 10 :24 AM EDT documented as of this encounter Plan of Treatment Upcoming Encounters Date Type Department Care Team (Late Contact Info) Description 07/04/2025 8:00 AM EST Office Visit [facility] [address] [place] [address] Vincent, Grecia [address] [place] [address] documented as of this encounter Visit Diagnoses Not on filedocumented in this encounter Care Teams Extrusion Die Template Maker Relationship Specialty Start Date End Date Yanely Mcdonald MD [address] [place], [place] [address], [place] [address] PCP - General Family Medicine 06/09/24 Charlene Curiel MD [address] [place] [address] [place] [address] Neurology 07/09/24 documented as of this encounter
--- OUTSIDE RECORDS SUMMARY | 2025-04-18 11:34 | XMS_ITS | Encounter Summary ---
Author Organization [email or web address] Address [address] [facility] [address] [place] [address] Care Team Providers Care Senior Foreman Name Role Phone Yanely Mcdonald MD Primary Care Provider +- [phone] Charlene Curiel MD Unavailable + [phone] Encounter Details Date Type Department Care Team ([facility] st Contact Info) Description 04/17/2025 Orders Only [facility] MEDICINE [address] [place], [place] [phone] Yanely Mcdonald MD [address] [place], [place] [phone] Screening-pulmonary TB (Primary Dx) Social History Tobacco Use Types Packs/Day Years [...] your housing situation today? I have jason arnold 07/12/[address] you li [...] on file documented as of this encounter Plan of Treatment Upcoming Encounters Date Type Department Care Team (Late st Contact Info) Description 07/04/2025 8:00 AM EST Office Visit [facility] ADULT DENTAL [address] [place] [address] Girish Kauraris [address] [place] [address] Scheduled Orders Name Type Priority Associated Diagnoses Orde r Schedule T-SPOT .TB Lab Routine Screening-pulmonary TB Expected: 04/17/2025 (Approximate), Expires: 04/17/2026 documented as of this encounter Visit Diagnoses Diagnosis Screening-pulmonary TB- Primary Screening examination for pulmonary tuberculosis documented in this encounter Additional Health Concerns Assessment Noted Time PHQ-9 Depression Total Score: 0 07/22/19 25 11:48 AM EST documented as of this encounter Care Teams Senior Foreman Relationship Specialty Start Date End Date Yanely Mcdonald MD [address] [place] [address] PCP - General Family Medicine 06/09/24 Charlene Curiel MD [address] [place] [address] [place] [address] Neurology 07/09/24 documented as of this encounter
[2025-04-24 14:49] LABS: TS Negative Control PASSED; TS Panel A 1; TS Panel B 0; TS Positive Control PASSED
[2025-04-24 14:51] LABS: TSpotTB NEGATIVE
== END 2025-04-18 10:25 | disposition home or self-care (01) ==
LOC: HO.HHCL 10:24
PROVIDERS: PCP Family Medicine; Visit Provider Family Medicine
DX: Z11.1 Encounter for screening for respiratory tuberculosis (principal)
CPT/HCPCS: 36415; 86481